=== PATIENT | male | born 1945 | race Caucasian/White ===

== ENCOUNTER 2017-03-17 11:06 | Emergency (ER) | payer MEDICARE, MEDICAID ==
[~2017-03-17] VITALS: Ht 177.8 cm; Wt 65.0 kg
[~2017-03-17 11:06] MED LIST: ALBUAER3 INH; ESOM1CAP6 PO; LURA80 PO; MULT1TAB85 PO; PRAV40TA2 PO; PRED20 PO; QUET1TAB9 PO; ZITHTAB PO
[2017-03-17 11:13] VITALS: BP 134/93; PULSE 92; RESP 28; TEMP 98.1; O2SAT 93
[2017-03-17 11:16] VITALS: BP 134/93; PULSE 90; RESP 28; TEMP 98.1; O2SAT 96
[2017-03-17 11:26] VITALS: O2SAT 97
[2017-03-17] MEDS ORDERED: SODIUM CHLORIDE 0.9% FLUSH 10 ML FLUSH IVF PRN (11:30)
[2017-03-17] MEDS ORDERED: IPRASOL INH (11:32)
[2017-03-17] MEDS ORDERED: LORA1TAB12 PO (11:32)
--- NOTE | 2017-03-17 11:32 | PD ---
HPI . sob at home Chief Complaint: Respiratory Distress Time Seen by Provider: 11:10 Travel History International Travel<30 days: No Contact w/Intl Traveler<30days: No Traveled to known affect area: No History of Present Illness HPI 71-year-old male with history of end-stage COPD, bipolar disorder, schizophrenia , anxiety here with complaints of shortness of breath. Patient was at home and not using his oxygen and suddenly felt short of breath. He called fire rescue and his O2 sat was 93%. Paramedics report that the patient had some diminished breath sounds and therefore was given Solu-Medrol 1 and a breathing treatment. Patient immediately started feeling better. He was given 2 L of oxygen via nasal cannula and started satting in the 94 and above range. He is now here in the emergency department tells me is feeling better. He says that he was just somewhat short of breath and became anxious. O2 sat on room air right now is 96 %. Patient has no signs of respiratory distress. He is currently with [facility] due to end-stage COPD. PFSH Past Medical History Arthritis: Yes (PT STATES " ALL OVER") Asthma: Yes Blood Disorders: No Bipolar Disorder: Yes Depression: Yes Heart Rhythm Problems: No High Cholesterol: Yes Chest Pain: No Congestive Heart Failure: No COPD: Yes Diminished Hearing: No Endocrine: No Genitourinary: No Immune Disorder: No Musculoskeletal: No Neurologic: No Respiratory: Yes (COPD) Integumentary: Yes (RIGHT HIP PT HAS SCAR AND STATES " CAN'T LAY ON THAT SIDE" ) Immunizations Current: Yes Schizophrenia: Yes Sleep Apnea: No PNEUMOCCOCAL Vaccine (Year): 3 ?: Not Past Surgical History Eye Surgery: Yes Oral Surgery: Yes (All teeth removed ) Pacemaker: No Tonsillectomy: Yes Other Surgery: Yes (RIGHT HIP) Social History Alcohol Use: No Tobacco Use: Yes (a pack a day ) Substance Use: No Allergies-Medications (Allergen,Severity, Reaction): Coded Allergies: No Known Allergies (Verified , 03/17/17) Reported Meds & Prescriptions Reported Meds & Active Scripts Active Proair Hfa 8.5 GM Inh (Albuterol Sulfate) 90 Mcg/Act Aer 2 Puff INH Q4-6H PRN 108 mcg/actuation Latuda (Lurasidone) 80 Mg Tab 80 Mg PO DAILY Reported Lorazepam 0.5 Mg Tab 0.5 Mg PO TID Multiple Vitamin 1 Tab 1 Tab PO DAILY Ranitidine (Ranitidine HCl) 150 Mg Tab 150 Mg PO BID Seroquel (Quetiapine Fumarate) 400 Mg Tab 400 Mg PO HS Duoneb (Ipratropium-Albuterol Neb) 0.5-2.5 Mg/3 Ml Neb 1 Nebule INH Q4HR NEB Lorazepam 1 Mg Tab 1 Mg PO Q4H PRN Pravastatin 40 Mg Tab 40 Mg PO DAILY Review of Systems General / Constitutional: No: Fever Eyes: No: Visual changes HENT: No: Headaches Cardiovascular: No: Chest Pain or Discomfort Respiratory: Positive: Shortness of Breath Gastrointestinal: No: Abdominal Pain Genitourinary: No: Dysuria Musculoskeletal: No: Pain Skin: No Rash Neurologic: No: Weakness Psychiatric: No: Depression Endocrine: No: Polydipsia Hematologic/Lymphatic: No: Easy Bruising Physical Exam Narrative GENERAL: AAO x 3, no acute distress, Well-nourished, well-developed patient. SKIN: Warm and dry. No visible rashes or bruising. HEAD: Normocephalic and atraumatic. EYES: No scleral icterus. No injection or drainage. EOM intact, PERRLA ENT: No nasal drainage noted. Mucous membranes pink. Airway patent. Oropharynx without any abnormality. NECK: Supple, trachea midline. No JVD. CARDIOVASCULAR: Regular rate and rhythm without murmurs, gallops, or rubs. RESPIRATORY: Breath sounds equally diminished bilaterally. No accessory muscle use. No rhonchi or rales. GASTROINTESTINAL: Abdomen soft, non-tender, nondistended. EXTREMITIES: No cyanosis or edema. BACK: Nontender without obvious deformity. No CVA tenderness. NEURO: CN II-12 intact, service tech/welder strength normal b/l, UE and LE 5/5, no focal deficits PSYCH: AAO x 3, normal affect. Data Data Last Documented VS Vital Signs Date Time Temp Pulse Resp B/P Pulse Ox O2 Delivery O2 Flow Rate FiO2 03/17/17 11:26 97 03/17/17 11:26 Room Air 03/17/17 11:16 98.1 90 28 134/93 Orders Iv Access Insert/Monitor (03/17/17 11:18) Ecg Monitoring (03/17/17 11:18) Oximetry (03/17/17 11:18) Oxygen Administration (03/17/17 11:18) Chest, Single Ap (03/17/17 11:18) Sodium Chloride 0.9% Flush (Ns Flush) (03/17/17 11:30) Electrocardiogram (03/17/17 ) MDM Medical Decision Making Medical Screen Exam Complete: Yes Emergency Medical Condition: Yes Medical Record Reviewed: Yes Differential Diagnosis End-stage COPD, less likely COPD exacerbation, anxiety Narrative Course 71-year-old male here with complaints of shortness of breath. On examination patient's exam is unremarkable except for diminished breath sounds bilaterally. This appears to be his baseline at this moment. Patient suffers from end-stage COPD. I will check a chest x-ray to rule out any type of acute process. If it is negative, patient will be discharged home. I have discussed with Marivel from hospice services. She will have someone follow with the patient. I discussed results with patient. He is in agreement with discharge. He feels better knowing there were no acute findings on CXR. Case was discussed with my attending Dr. Weiner and he is in agreement with treatment plan. Patient verbalized understanding of instructions, questions were answered, and thanked me for their care. I advised them if their condition worsens, please return to the nearest emergency room for further care. Diagnosis Primary Impression: COPD (chronic obstructive pulmonary disease) Qualified Code: J43.9 - Pulmonary emphysema, unspecified emphysema type Patient Instructions: General Instructions Additional Instructions: Hospice will follow up with you at home. Return to the emergency department for any worsening of your condition. Med/Other Pt SpecificInfo: No Change to Meds Disposition: 01 DISCHARGE HOME Condition: Stable Ekta De León Mar 17, 2017 11:32
[2017-03-17] MEDS ORDERED: MULTTAB67 PO (11:38)
[2017-03-17] MEDS ORDERED: LORA-373 PO (11:38)
[2017-03-17] MEDS ORDERED: SERO400T PO (11:38)
[2017-03-17] MEDS ORDERED: RANI150T PO (11:38)
--- NOTE | 2017-03-17 11:55 | RADRPT ---
EXAM DATE/TIME: 03/17/2017 11:28 [facility] COMPARISON: CHEST SINGLE AP, September 15, 2016, 10:03. INDICATIONS : Shortness of breath since this morning. MEDICAL HISTORY : Chronic obstructive pulmonary disease. SURGICAL HISTORY : None. ENCOUNTER: Initial ACUITY: 1 day PAIN SCORE: 0/10 LOCATION: Bilateral chest FINDINGS: Lungs are hyperinflated with underlying emphysema especially in upper lobes. No effusion. No new cons olidation. Heart size normal. Mildly tortuous aorta. CONCLUSION: 1. Emphysema with hyperinflation. No focal consolidation or effusion. Sridhar Morrison MD on March 17, 2017 at 11:52 Board Certified Radiologist. This report was verified electronically.
[2017-03-17 12:43] VITALS: BP 129/102; PULSE 87; RESP 30; O2SAT 97
[2017-03-17 12:49] VITALS: BP 138/91; PULSE 88; RESP 27; O2SAT 97
--- NOTE | 2017-03-17 16:21 | EKG ---
Date Performed: 03/17/2017 Time Performed: 11:23:21 PTAGE: 71 years EKG: SINUS TACHYCARDIA SEPTAL MYOCARDIAL INFARCTION ABNORMAL ECG PREVIOUS TRACING : 03/17/2017 11.12 Compared to prior tracing no significant change DOCTOR: Guille Watkins Interpretating Date/Time 03/17/2017 16:19:02
== END 2017-03-17 13:29 | disposition home or self-care (01) ==
LOC: NEPC 11:06
DX: J44.9 Chronic obstructive pulmonary disease, unspecified (principal); F17.200 Nicotine dependence, unspecified, uncomplicated
CPT/HCPCS: 71010; 93005; 99284